=== PATIENT | female | born 1945 | race Caucasian/White ===

== ENCOUNTER 2018-03-27 05:27 | Inpatient (IN) | payer MEDICARE, BC ==
[2018-03-27] MEDS: LACTATED RINGER'S 1,000 ML IV* (06:06)
[2018-03-27] MEDS: D5W-0.45 NACL + KCL 20 MEQ 1,000 ML IV ×2 (06:54→15:31)
[2018-03-27] MEDS ORDERED: ROCURONIUM 50 MG INJ ×2 (06:58→07:00)
[2018-03-27] MEDS ORDERED: FENTAnyl 50 MCG/ML VIAL (06:58)
[2018-03-27] MEDS ORDERED: PROPOFOL 20 ML (06:58)
[2018-03-27] MEDS ORDERED: GLYCOPYRROLATE 0.4 MG INJ (06:58)
[2018-03-27] MEDS ORDERED: CEFAZOLIN 1 GM INJ (06:58)
[2018-03-27] MEDS ORDERED: MIDAZOLAM 1 MG/ML 2 ML INJ (06:58)
[2018-03-27] MEDS ORDERED: NEOSTIGMINE 3 MG/3 ML SYRINGE (06:58)
[2018-03-27] MEDS ORDERED: ONDANSETRON 4 MG INJ (06:58)
[2018-03-27] MEDS ORDERED: DEXAMETHASONE 4 MG/ML 1 ML INJ (06:59)
[2018-03-27] MEDS ORDERED: CEPASTAT LOZENGE MT (07:00)
[2018-03-27] MEDS ORDERED: NALOXONE (0.4 MG/ML) INJ IV (07:00)
[2018-03-27] MEDS ORDERED: ACETAMINOPHEN 325 MG TAB PO (07:00)
[2018-03-27] MEDS ORDERED: BISACODYL 10 MG SUPP PR (07:00)
[2018-03-27] MEDS ORDERED: DIPHENHYDRAMINE 50 MG INJ IV (07:00)
[2018-03-27] MEDS: CEFAZOLIN 2 GM/50 ML (PMX) 50 ML IVPB (07:19)
[2018-03-27] MEDS ORDERED: ONDANSETRON 4 MG INJ IV (08:00)
[2018-03-27] MEDS ORDERED: hydrALAzine 20 MG INJ IV (08:00)
[2018-03-27] MEDS ORDERED: TRIMETHOBENZAMIDE 100 MG/ML VIAL IM (08:00)
[2018-03-27] MEDS ORDERED: MEPERIDINE 25 MG INJ IV (08:00)
[2018-03-27] MEDS ORDERED: ALBUTEROL 0.083% (NEB) 2.5 MG/3 ML AMP HHN (08:00)
[2018-03-27] MEDS ORDERED: FENTAnyl 50 MCG/ML VIAL IV ×2 (08:00)
[2018-03-27] MEDS ORDERED: HYDROmorphONE 1 MG/5 ML IV SYRINGE IV ×2 (08:00)
[2018-03-27] MEDS ORDERED: OXYCODONE/ACETAMINOPHEN (5/325) TAB PO ×2 (08:00)
[2018-03-27] MEDS ORDERED: IPRATROPIUM (NEB) 0.5 MG/2.5 ML AMP HHN (08:00)
[2018-03-27] MEDS ORDERED: LABETALOL HCL 20MG INJ IV (08:00)
[2018-03-27] MEDS ORDERED: EPHEDrine SULFATE 50 MG/5 ML SYG IV (08:00)
[2018-03-27] MEDS: BUPIVACAINE 0.25%/EPI (SDV) 30 ML INJ (08:26)
[2018-03-27] MEDS: CEFAZOLIN 1 GM INJ (08:26)
[2018-03-27] MEDS: CA CHLORIDE 10% 10 ML SYRINGE (08:26)
[2018-03-27] MEDS: SURGIFOAM POWDER 1 GM KIT (08:27)
[2018-03-27] MEDS: HEPARIN 1000 UNITS/ML 10 ML INJ ×2 (08:27→08:28)
[2018-03-27] MEDS: THROMBIN 5000 UNIT VIAL (08:28)
[2018-03-27] MEDS ORDERED: LABETALOL HCL 20MG INJ (08:49)
[2018-03-27] MEDS ORDERED: SUGAMMADEX SODIUM 200 MG/2 ML VIAL IV (09:21)
[2018-03-27] MEDS: DOCUSATE SODIUM 100 MG CAP PO ×2 (10:20→22:05)
[2018-03-27] MEDS: FENTAnyl 50 MCG/ML VIAL IV (10:21)
[2018-03-27] MEDS: DIPHENHYDRAMINE 50 MG INJ IV (10:21)
[2018-03-27] MEDS: HYDROmorphONE 0.2 MG/ML PCA IV (10:22)
[2018-03-27] MEDS: HYDROmorphONE 1 MG/5 ML IV SYRINGE IV (10:58)
[2018-03-27] MEDS: MIDAZOLAM 1 MG/ML 2 ML INJ IV (11:04)
[2018-03-27] MEDS: CEFAZOLIN 1 GM/50 ML (PMX) 50 ML IVPB ×2 (15:27→22:56)
[2018-03-27] MEDS: DIAZEPAM 5 MG TAB PO (22:05)
[2018-03-28] MEDS: D5W-0.45 NACL + KCL 20 MEQ 1,000 ML IV ×2 (02:36→12:54)
[2018-03-28] MEDS: CARISOPRODOL 350 MG TAB PO (02:36)
[2018-03-28] MEDS: HYDROmorphONE 0.5 MG/0.5 ML SYG IV (02:53)
[2018-03-28] MEDS: HYDROmorphONE 0.2 MG/ML PCA IV ×4 (04:22→23:44)
[2018-03-28 05:50] LABS: ADD MAN DIFF? NO
[2018-03-28 06:01] LABS: BASOPHILS % 0.1 % (0.0-2.0); EOSINOPHILS % 0.3 % (0.0-7.0); HEMATOCRIT 31.8 % (37.0-47.0); HEMOGLOBIN 10.3 g/dl (12.0-16.0); IMMATURE GRANS #M 0.02 10^3/ul; IMMATURE GRANS % (M) 0.3 %; LYMPHOCYTES # 1.7 10^3/ul (0.8-2.9); LYMPHOCYTES % 22.2 % (15.0-51.0); MEAN CORPUSCULAR HEMOGLOBIN 27.5 pg (29.0-33.0); MEAN CORPUSCULAR HGB CONC 32.4 g/dl (32.0-37.0); MEAN PLATELET VOLUME 11.1 fl (7.4-10.4); MONOCYTE # 0.7 10^3/ul (0.3-0.9); MONOCYTES % 9.4 % (0.0-11.0); NEUTROPHIL # 5.1 10^3/ul (1.6-7.5); NEUTROPHILS % 67.7 % (39.0-77.0); PLATELET COUNT 174 10^3/UL (140-415); RED BLOOD COUNT 3.74 10^6/ul (4.20-5.40); RED CELL DISTRIBUTION WIDTH 13.5 % (11.5-14.5)
[2018-03-28 06:01] LABS: WHITE BLOOD COUNT 7.5 10^3/ul (4.8-10.8)
[2018-03-28 06:13] LABS: ANION GAP 9 (8-16); BLOOD UREA NITROGEN 9 mg/dl (7-20); CALCIUM 8.7 mg/dl (8.4-10.2); CARBON DIOXIDE 28 mmol/L (21-31); CHLORIDE 104 mmol/L (97-110); CREATININE 0.52 mg/dl (0.44-1.00); GLUCOSE 116 mg/dl (70-220); MAGNESIUM 1.7 mg/dl (1.7-2.5); POTASSIUM 3.9 mmol/L (3.5-5.1); SODIUM 137 mmol/L (135-144)
[2018-03-28] MEDS: CEFAZOLIN 1 GM/50 ML (PMX) 50 ML IVPB (06:44)
[2018-03-28] MEDS: DOCUSATE SODIUM 100 MG CAP PO ×2 (08:45→20:06)
[2018-03-28] MEDS: PAROXETINE 20 MG TAB PO (08:45)
[2018-03-28] MEDS: ONDANSETRON 4 MG INJ IV (10:41)
[2018-03-28] MEDS: AL HYDROX/MG HYDROX/SIMETH 30 ML CUP PO (18:54)
[2018-03-28] MEDS: DIAZEPAM 5 MG TAB PO (23:02)
[2018-03-29 05:12] LABS: ADD MAN DIFF? NO
[2018-03-29 05:13] LABS: BASOPHILS % 0.4 % (0.0-2.0); EOSINOPHILS % 0.2 % (0.0-7.0); HEMATOCRIT 35.7 % (37.0-47.0); HEMOGLOBIN 11.4 g/dl (12.0-16.0); LYMPHOCYTES # 1.3 10^3/ul (0.8-2.9); LYMPHOCYTES % 13.5 % (15.0-51.0); MEAN CORPUSCULAR HEMOGLOBIN 27.1 pg (29.0-33.0); MEAN CORPUSCULAR HGB CONC 31.9 g/dl (32.0-37.0); MEAN CORPUSCULAR VOLUME 84.8 fl (82.0-101.0); MEAN PLATELET VOLUME 10.8 fl (7.4-10.4); MONOCYTE # 1.3 10^3/ul (0.3-0.9); MONOCYTES % 12.9 % (0.0-11.0); NEUTROPHIL # 7.2 10^3/ul (1.6-7.5); NEUTROPHILS % 72.7 % (39.0-77.0); PLATELET COUNT 175 10^3/UL (140-415); RED BLOOD COUNT 4.21 10^6/ul (4.20-5.40); RED CELL DISTRIBUTION WIDTH 13.6 % (11.5-14.5)
[2018-03-29 05:13] LABS: WHITE BLOOD COUNT 9.9 10^3/ul (4.8-10.8)
[2018-03-29] MEDS: HYDROmorphONE 0.2 MG/ML PCA IV (05:16)
[2018-03-29] MEDS: ONDANSETRON 4 MG INJ IV (05:18)
[2018-03-29 05:32] LABS: ANION GAP 12 (8-16); BLOOD UREA NITROGEN 7 mg/dl (7-20); CARBON DIOXIDE 28 mmol/L (21-31); CHLORIDE 102 mmol/L (97-110); CREATININE 0.44 mg/dl (0.44-1.00); GLUCOSE 119 mg/dl (70-220); MAGNESIUM 1.9 mg/dl (1.7-2.5); POTASSIUM 4.1 mmol/L (3.5-5.1); SODIUM 138 mmol/L (135-144)
[2018-03-29 05:33] LABS: PHOSPHORUS 3.1 mg/dl (2.5-4.9)
[2018-03-29] MEDS ORDERED: HYDROCODONE/APAP (5/325) TAB PO ×3 (07:30→09:30)
[2018-03-29] MEDS: HYDROCODONE/APAP (5/325) TAB PO ×2 (07:33→12:24)
[2018-03-29] MEDS: DOCUSATE SODIUM 100 MG CAP PO (09:02)
[2018-03-29] MEDS: PAROXETINE 20 MG TAB PO (09:02)
== END 2018-03-29 14:55 | disposition home or self-care (01) | DRG 517 ==
LOC: REC 05:27 → MS1 12:10
PROC: 01NB0ZZ Release Lumbar Nerve, Open Approach (ICD-10-PCS; principal; 2018-03-27 07:00)
DX: M48.062 Spinal stenosis, lumbar region with neurogenic claudication (principal); M06.9 Rheumatoid arthritis, unspecified; M81.0 Age-related osteoporosis without current pathological fracture; F41.9 Anxiety disorder, unspecified; M48.07 Spinal stenosis, lumbosacral region
CPT/HCPCS: 72020; 80048; 83735; 84100; 85025; 86999; 88304; 88311; 97110; 97116; 97162; 97530